=== PATIENT | female | born 1945 | race Caucasian/White ===

== ENCOUNTER 2018-10-23 09:26 | Day surgery (SDC) | payer BC ==
[~2018-10-23] VITALS: Ht 160 cm; Wt 57.6 kg
[2018-10-23] MEDS ORDERED: LEVOTHYROXINE (09:54)
[2018-10-23] MEDS ORDERED: CLONAZEPAM (09:54)
[2018-10-23] MEDS ORDERED: ASPIRIN (09:54)
[2018-10-23] MEDS ORDERED: LIPITOR (09:54)
[2018-10-23 09:55] VITALS: Ht 160 cm; Wt 57.6 kg
[2018-10-23 10:22] VITALS: BP 128/60; PULSE 48; RESP 14
[2018-10-23] MEDS ORDERED: PROPOFOL 20 ML ONE (10:50)
--- NOTE | 2018-10-23 11:30 | PREAC ---
Date/Time of Note Date/Time of Note DATE: 10/23/18 TIME: 11:27 Anesthesia Eval and Record Evaluation Time Pre-Procedure Interview DATE: 10/23/18 TIME: 11:27 Age 73 Sex female NPO: 8 hrs Preoperative diagnosis METASTATIC COLON CANCER, GERD Planned procedure EGD COLONOSCOPY Past Medical History Past Medical History: Includes Cardio: Dyslipidemia Endo: Hypothyroid GI: Other (COLON CANCER) Surgery & Anesthesia Issues No known issue Meds Anticoagulation: Yes Beta Roberto within 24 hr: No Reason Beta Roberto not given: Pt. not on B-Roberto Reported Medications [Levothyroxine] No Conflict Check 10/23/18 [Clonazepam] No Conflict Check 10/23/18 [Lipitor] No Conflict Check 10/23/18 [Aspirin ] No Conflict Check 10/23/18 Meds reviewed: Yes Allergies Coded Allergies: No Known Allergy (Unverified , 10/23/18) Allergies Reviewed: Yes Labs/Studies Labs Reviewed: Reviewed by anesthesiologist test: N/A Pre-procedure Exam Last vitals Vital Signs Date Temp Pulse Resp B/P (MAP) Pulse Ox O2 O2 Flow FiO2 Time Delivery Rate 10/23/18 98.6 48 14 128/60 96 Room Air 10:22 (82) Airway: Adequate mouth opening, Adequate thyromental dist Mallampati: Mallampati II Teeth: Normal Lung: Normal Heart: Normal ASA Physical Status ASA physical status: 3 Emergency: None Planned Anesthetic General/MAC: MAC Planned Pain Management Parenteral pain med Pre-operative Attestations Prior to commencing anesthesia and surgery, the patient was re-evaluated, there was verification of: *The patient's identity *The results of appropriate recent lab work and preoperative vital signs *The above evaluation not changing prior to induction *Anesthetic plan, risk benefits, alternative and complications discussed with patient/family; questions answered; patient/family understands, accepts and wishes to proceed. FAISAL LOPEZ Oct 23, 2018 11:30
--- NOTE | 2018-10-23 11:31 | PAC ---
Date/Time of Note Date/Time of Note DATE: 10/23/18 TIME: 11:31 Post-Anesthesia Notes Post-Anesthesia Note Last documented vital signs HR 50 bp 116/58 RR 16 TEMP 97 SPO2 99% Vital Signs Date Temp Pulse Resp B/P (MAP) Pulse Ox O2 O2 Flow FiO2 Time Delivery Rate 10/23/18 98.6 48 14 128/60 96 Room Air 10:22 (82) Activity: WNL Respiratory function: WNL Cardiovascular function: WNL Mental status: Baseline Pain reasonably controlled: Yes Hydration appropriate: Yes Nausea/Vomiting absent: Yes FAISAL LOPEZ Oct 23, 2018 11:31
[2018-10-23 11:45] VITALS: BP 128/65; RESP 15
[2018-10-23] MEDS ORDERED: ONDANSETRON 4 MG INJ IV PRN (12:00)
--- NOTE | 2018-10-24 06:19 | CONS ---
DATE OF ADMISSION: 10/23/2018 DATE OF CONSULTATION: PATIENT NAME: CLEO CABELLO TYPE OF CONSULTATION: Preoperative gastroenterology. Dear Dr. Elise: I thank you very much for this kind referral. HISTORY OF PRESENT ILLNESS: Ms. Marni Cabello is a 73-year-old female patient who has been referr ed to me for further evaluation of upper abdominal pain and chronic heartburn with history of black s tool. The patient was taking omeprazole and now she has discontinued it. She is on baby aspirin a d ay. There is no past history of peptic ulcer disease. Appetite is good and no weight loss. No hist ory of gallstones. The patient had cancer of the colon with liver metastases, for which she has unde rgone surgery in the liver with removal of the tumor. The patient is in remission at the present alejandro e. She had colon cancer for which she has undergone surgery 5 years ago. She has noticed a change i n the bowel habit with constipation. No rectal bleeding. Not a hypertensive or diabetic. No heart disease, lung problem or kidney disease. PAST MEDICAL HISTORY: She has got hyperlipidemia and hypothyroidism. She is status post hysterectom y. SOCIAL HISTORY: Nonsmoker. No alcohol abuse. FAMILY HISTORY: The patient's father had stomach cancer. ALLERGIES: NO DRUG ALLERGIES. MEDICATIONS: 1. Lipitor. 2. Levothyroxine. 3. Clonazepam. PHYSICAL EXAMINATION: VITAL SIGNS: She is 5 feet, 3 inches tall and weighs 126 pounds. HEART: Normal heart sounds. LUNGS: Clear. ABDOMEN: Soft. No masses. Normal bowel sounds. NEUROLOGIC: Normal. IMPRESSION: 1. Upper abdominal pain and chronic heartburn with a history of black stool. 2. Status post surgery for sigmoid colon cancer. 3. History of metastasis to the liver for which she has undergone chemotherapy and surgical resectio n. 4. Change in the bowel habit with constipation. 4. Hyperlipidemia. 5. Hypothyroidism. 6. Status post hysterectomy. 7. The patient's father had stomach cancer. PLAN: 1. Endoscopy and colonoscopy for further evaluation. 2. Because of the patient's age, she needs monitored anesthesia care. The procedures and possible complications are well explained to the patient and the family. They und erstand and consent to the procedures. I thank you once again. With warmest personal regards, Dictated By: JUAN JACINTO/JOSELUIS ST: 10/03/2018 14:22:36 Conf#: [id number] [facility]#: [id number]
== END 2018-10-23 14:11 | disposition home or self-care (01) ==
LOC: GIL 09:26
PROVIDERS: ATTEND Internal Medicine Gastroenterology
DX: Z12.11 Encounter for screening for malignant neoplasm of colon (principal); K64.8 Other hemorrhoids; K21.9 Gastro-esophageal reflux disease without esophagitis; E78.5 Hyperlipidemia, unspecified; E03.9 Hypothyroidism, unspecified
CPT/HCPCS: 43239; 45378; 88305; Z7610